=== PATIENT | female | born 1995 | race Caucasian/White ===

== ENCOUNTER 2017-09-25 10:13 | Emergency (ER) | payer BC ==
[~2017-09-25] VITALS: Ht 170.2 cm; Wt 70.3 kg
[~2017-09-25 10:13] MED LIST: AMOXICILLIN 50500 M1 PO; ATARAX; FLOMAX0.4 MG PO; IBUPROFEN 600600 M1 PO; IBUPROFEN 800800 MG PO; NAPROSYN500 MG PO; NOHOMEMEDICATIONS; NORCO 5-325 TA1 EACH PO; ULTRAM 50MG TAB50 MG PO; ZPAK PO
[2017-09-25 10:49] LABS: ABSOLUTE EOSINOPHILS 0.1 thou/uL (0.0-0.7); ABSOLUTE LYMPHOCYTES 1.5 thou/uL (0.8-5.3); ABSOLUTE MONOCYTES 0.3 thou/uL (0.0-1.2); ABSOLUTE NEUTROPHILS 2.3 thou/uL (1.6-8.1); BASOPHILS 0.4 %; EOSINOPHILS 1.6 %; HEMATOCRIT 38.4 % (37.0-47.0); HEMOGLOBIN 13.2 gm/dL (12.0-15.0); LYMPHOCYTES 36.1 %; MCH 30.4 pg (26.0-34.0); MCHC 34.4 g/dL (28.0-37.0); MCV 88.4 fL (80.0-100.0); MONOCYTES 7.4 %; MPV 7.9 fl. (7.2-11.1); NUCLEATED RBCS 0 /100WBC; PLATELET COUNT* 179 thou/uL (150-400); POLYS 54.5 %; RBC 4.35 mil/uL (4.20-5.00); RDW-CV 13.3 % (10.5-14.5); WBC 4.2 thou/uL (4.0-11.0)
[2017-09-25 10:54] LABS: ANION GAP 6 mmol/L (7-16); BUN 11 mg/dL (7-18); CHLORIDE 102 mmol/L (98-107); CO2 27 mmol/L (21-32); CREATININE 0.8 mg/dL (0.6-1.3); GLUCOSE 141 mg/dL (70-99); POTASSIUM 3.6 mmol/L (3.5-5.1); SODIUM 135 mmol/L (136-145)
[2017-09-25 11:01] LABS: ALBUMIN 3.9 g/dL (3.4-5.0); ALKALINE PHOSPHATASE 71 U/L (46-116); SGOT 14 U/L (15-37); SGPT < 6 U/L (30-65); TOTAL BILIRUBIN 0.4 mg/dL (<0.1-1.0); TOTAL PROTEIN 7.8 g/dL (6.4-8.2); TROPONIN-I LEVEL <0.06 ng/mL (<0.06)
[2017-09-25 11:13] LABS: AMP/METHAMP Negative (Negative); BARBITURATES Negative (Negative); BENZODIAZEPINES Negative (Negative); COCAINE Negative (Negative); METHADONE Negative (Negative); OPIATES Negative (Negative); PCP Negative (Negative); THC Negative (Negative)
[2017-09-25] MEDS ORDERED: ZANTAC 150MG T150 MG PO (12:15)
[2017-09-25 12:27] VITALS: BP 114/70
--- NOTE | 2017-09-25 16:21 | EKG ---
[place] [address] ELECTROCARDIOGRAM REPORT Name: JESSIE DURON Room: [facility]#: [id number] Admission: 09/25/17 Attend Phys: Discharge: 09/25/17 Date of : [birth year] Report #: [id number] THIS REPORT FOR: //name// [facility] ED Test Date: 2017-09-25 Test Time: 10:20:52 Pat Name: JESSIE DURON Department: Room: Gender: F Supervisor Spring Up: Pamela MAN : 1995 Requested By: Richard Ortiz Order Number: [id number] MD: Kirill Davis Measurements Intervals [place] Rate: 83 P: 66 FL: 114 QRS: 53 QRSD: 83 T: 9 QT: 349 QTc: 410 Interpretive Statements Sinus rhythm Borderline short [place] interval No previous ECG available for comparison Electronically Signed On 09-25-2017 16:20:58 PATIENT SUPPORT SPECIALIST by Kirill Davis [email or web address] <ELECTRONICALLY SIGNED> By: Kirill Davis MD, [facility] 09/25/17 1620 1020 1020 Kirill Davis MD, FACC /EPI
== END 2017-09-25 12:27 | disposition home or self-care (01) ==
LOC: M.ERS 10:13
PROVIDERS: Nurse Practitioner Psychiatric/Mental Health
DX: K21.9 Gastro-esophageal reflux disease without esophagitis (principal); R07.89 Other chest pain; F14.10 Cocaine abuse, uncomplicated; F17.210 Nicotine dependence, cigarettes, uncomplicated

== ENCOUNTER 2018-06-25 17:47 | Emergency (ER) | payer BC ==
[~2018-06-25] VITALS: Ht 172.7 cm; Wt 72.6 kg
[~2018-06-25 17:47] MED LIST changes: +ZANTAC 150MG T150 MG PO
[2018-06-25] MEDS ORDERED: IBUPROFEN 600600 M1 PO ×2 (19:15→19:39)
[2018-06-25] MEDS ORDERED: ROBAXIN 750 MG750 M1 PO ×2 (19:15→19:39)
[2018-06-25 19:44] VITALS: BP 122/78
== END 2018-06-25 19:45 | disposition home or self-care (01) ==
LOC: M.ERS 17:47
DX: S22.39XA Fracture of one rib, unspecified side, initial encounter for closed fracture (principal); M54.9 Dorsalgia, unspecified; K21.9 Gastro-esophageal reflux disease without esophagitis; F17.210 Nicotine dependence, cigarettes, uncomplicated; V43.52XA Car driver injured in collision with other type car in traffic accident, initial encounter; Y93.89 Activity, other specified; Y92.89 Other specified places as the place of occurrence of the external cause; Y99.8 Other external cause status

== ENCOUNTER 2018-06-27 09:35 | Emergency (ER) | payer BC ==
[~2018-06-27] VITALS: Ht 172.7 cm; Wt 72.6 kg
[~2018-06-27 09:35] MED LIST changes: +ROBAXIN 750 MG750 M1 PO
[2018-06-27] MEDS ORDERED: NABUMETONE 750750 M1 PO (11:19)
[2018-06-27 11:47] VITALS: BP 107/67
== END 2018-06-27 11:47 | disposition home or self-care (01) ==
LOC: M.ERS 09:35
DX: M72.2 Plantar fascial fibromatosis (principal); K21.9 Gastro-esophageal reflux disease without esophagitis; F17.210 Nicotine dependence, cigarettes, uncomplicated

== ENCOUNTER 2019-02-06 16:39 | Emergency (ER) | payer BC ==
[~2019-02-06] VITALS: Ht 172.7 cm; Wt 81.7 kg
[~2019-02-06 16:39] MED LIST changes: +NABUMETONE 750750 M1 PO
[2019-02-06 17:48] VITALS: BP 125/71
== END 2019-02-06 17:48 | disposition home or self-care (01) ==
LOC: M.ERS 16:39
DX: M79.672 Pain in left foot (principal); K21.9 Gastro-esophageal reflux disease without esophagitis; F17.210 Nicotine dependence, cigarettes, uncomplicated

== ENCOUNTER 2019-06-22 11:26 | Emergency (ER) | payer BC ==
[~2019-06-22] VITALS: Ht 172.7 cm; Wt 77.1 kg
[2019-06-22 11:51] LABS: URINE BILIRUBIN NEGATIVE (Negative); URINE BLOOD 3+ (Negative); URINE CLARITY CLEAR; URINE COLOR PALE YELLOW; URINE GLUCOSE-RANDOM NEGATIVE (Negative); URINE KETONES NEGATIVE (Negative); URINE LEUKOCYTES-REFLEX NEGATIVE (Negative); URINE NITRITE-REFLEX NEGATIVE (Negative); URINE PROTEIN NEGATIVE (Negative); URINE UROBILINOGEN 0.2 E.U./dl (0.2-1.0)
[2019-06-22 11:56] LABS: ABSOLUTE EOSINOPHILS 0.1 thou/uL (0.0-0.7); ABSOLUTE LYMPHOCYTES 1.6 thou/uL (0.8-5.3); ABSOLUTE MONOCYTES 0.5 thou/uL (0.0-1.2); ABSOLUTE NEUTROPHILS 5.5 thou/uL (1.6-8.1); BASOPHILS 0.1 %; EOSINOPHILS 1.2 %; HEMATOCRIT 34.8 % (37.0-47.0); HEMOGLOBIN 12.2 gm/dL (12.0-15.0); LYMPHOCYTES 20.3 %; MCH 29.8 pg (26.0-34.0); MCV 85.3 fL (80.0-100.0); MONOCYTES 6.1 %; MPV 7.5 fl. (7.2-11.1); NUCLEATED RBCS 0 /100WBC; PLATELET COUNT* 216 thou/uL (150-400); POLYS 72.3 %; RBC 4.08 mil/uL (4.20-5.00); RDW-CV 12.9 % (10.5-14.5); WBC 7.7 thou/uL (4.0-11.0)
[2019-06-22 12:01] LABS: CALCIUM 8.7 mg/dL (8.5-10.1); CREATININE 0.7 mg/dL (0.6-1.3); POTASSIUM 3.5 mmol/L (3.5-5.1)
[2019-06-22 12:06] LABS: ALBUMIN 3.9 g/dL (3.4-5.0); TOTAL BILIRUBIN 0.2 mg/dL (<0.1-1.0); TOTAL PROTEIN 7.7 g/dL (6.4-8.2)
[2019-06-22 12:28] LABS: BACTERIA-REFLEX 1-9 Few /HPF (None Seen); CASTS None Seen /LPF (None Seen); CRYSTALS None Seen /LPF (None Seen); SQUAMOUS 0-3 Few /LPF (0-3); URINE WBC-REFLEX 0-5 Rare /HPF (0-5)
[2019-06-22 12:29] LABS: URINE RBC 3-10 Few /HPF (0-2)
[2019-06-22] MEDS ORDERED: FLAGYL500 M1 PO (13:29)
[2019-06-22] MEDS ORDERED: BENTYL 20 MG TA20 M1 PO (13:29)
[2019-06-22] MEDS ORDERED: ONDANSETRON HCL4 M2 PO (13:29)
[2019-06-22 13:39] VITALS: BP 97/60
--- NOTE | 2019-06-22 15:16 | EKG ---
[place] [address] ELECTROCARDIOGRAM REPORT Name: JESSIE DURON Room: [facility]#: [id number] Admission: 06/22/19 Attend Phys: Discharge: 06/22/19 Date of : [birth year] Report #: [id number] THIS REPORT FOR: //name// [facility] ED Test Date: 2019-06-22 Test Time: 12:08:40 Pat Name: JESSIE DURON Department: Room: Gender: F Control Board Operator: MS : 1995 Requested By: Debbie Andrews Order Number: [id number] MD: Wes Wilson Measurements Intervals [place] Rate: 66 P: 60 AR: 104 QRS: 13 QRSD: 84 T: 29 QT: 408 QTc: 428 Interpretive Statements Sinus rhythm Short [place] interval Baseline wander in lead(s) V1,V2 Compared to ECG 09/25/2017 10:20:52 No significant changes Electronically Signed On 06-22-2019 15:16:42 MANAGER RESPIRATORY by Wes Wilson [email or web address] <ELECTRONICALLY SIGNED> By: Wes Wilson MD, [facility] 06/22/19 1516 120 07 Wes Wilson MD, FAC /EPI
== END 2019-06-22 13:39 | disposition home or self-care (01) ==
LOC: M.ERS 11:26
PROVIDERS: Nurse Practitioner Family
DX: R59.0 Localized enlarged lymph nodes (principal); R19.7 Diarrhea, unspecified; K21.9 Gastro-esophageal reflux disease without esophagitis; F17.210 Nicotine dependence, cigarettes, uncomplicated

== ENCOUNTER 2020-08-10 16:40 | Emergency (ER) | payer BC ==
[~2020-08-10] VITALS: Ht 172.7 cm; Wt 70.3 kg
[~2020-08-10 16:40] MED LIST changes: +BENTYL 20 MG TA20 M1 PO; +FLAGYL500 M1 PO; +ONDANSETRON HCL4 M2 PO
[2020-08-10 16:42] VITALS: BP 116/77
[2020-08-10 17:13] LABS: ABSOLUTE EOSINOPHILS 0.1 thou/uL (0.0-0.7); ABSOLUTE LYMPHOCYTES 2.2 thou/uL (0.8-5.3); ABSOLUTE MONOCYTES 0.6 thou/uL (0.0-1.2); ABSOLUTE NEUTROPHILS 4.8 thou/uL (1.6-8.1); BASOPHILS 0.5 %; EOSINOPHILS 1.4 %; HEMATOCRIT 39.7 % (37.0-47.0); HEMOGLOBIN 13.9 gm/dL (12.0-15.0); LYMPHOCYTES 28.3 %; MCH 30.5 pg (26.0-34.0); MCHC 34.9 g/dL (28.0-37.0); MCV 87.4 fL (80.0-100.0); MONOCYTES 7.2 %; MPV 7.5 fl. (7.2-11.1); NUCLEATED RBCS 0 /100WBC; PLATELET COUNT* 211 thou/uL (150-400); POLYS 62.6 %; RBC 4.54 mil/uL (4.20-5.00); RDW-CV 12.8 % (10.5-14.5); WBC 7.7 thou/uL (4.0-11.0)
[2020-08-10 17:23] LABS: CALCIUM 9.2 mg/dL (8.5-10.1); CREATININE 0.7 mg/dL (0.6-1.3); POTASSIUM 3.6 mmol/L (3.5-5.1)
[2020-08-10 17:27] LABS: ALBUMIN 4.3 g/dL (3.4-5.0); MAGNESIUM 2.1 mg/dL (1.8-2.4); TOTAL BILIRUBIN 0.4 mg/dL (<0.1-1.0); TOTAL PROTEIN 8.2 g/dL (6.4-8.2)
[2020-08-10] MEDS ORDERED: IBUPROFEN 800800 M1 PO (17:50)
--- NOTE | 2020-08-11 16:23 | EKG ---
[place] [address] ELECTROCARDIOGRAM REPORT Name: JESSIE DURON Room: [facility]#: [id number] Admission: 08/10/20 Attend Phys: Discharge: 08/10/20 Date of : [birth year] Date of Service: 08/10/20 1645 Report #: [id number] THIS REPORT FOR: //name// [facility] ED Test Date: 2020-08-10 Test Time: 16:45:04 Pat Name: JESSIE DURON Department: Room: Gender: F Surfacer Operator: : 1995 Requested By: Bib Booth Order Number: [id number] MD: Joshua Dodson Measurements Intervals [place] Rate: 82 P: 57 [place]: 107 QRS: 45 QRSD: 82 T: 4 QT: 347 QTc: 406 Interpretive Statements Sinus rhythm Short [place] interval Compared to ECG 06/22/2019 12:08:40 No significant changes Electronically Signed On 08-11-2020 16:23:21 TRIM LINE WORKER by Joshua Dodson [email or web address] <ELECTRONICALLY SIGNED> By: Joshua Dodson MD, [facility] 08/11/20 1623 1645 1645 Joshua Dodson MD, [facility] /EPI
== END 2020-08-10 18:14 | disposition home or self-care (01) ==
LOC: M.ERS 16:40
PROVIDERS: Emergency Medicine Emergency Medical Services
DX: R07.81 Pleurodynia (principal); F17.210 Nicotine dependence, cigarettes, uncomplicated; K21.9 Gastro-esophageal reflux disease without esophagitis

== ENCOUNTER 2020-09-22 13:57 | Emergency (ER) | payer BC ==
[~2020-09-22] VITALS: Ht 172.7 cm; Wt 72.6 kg
[~2020-09-22 13:57] MED LIST changes: +IBUPROFEN 800800 M1 PO
[2020-09-22] MEDS ORDERED: DOXYCYCLINE 10100 MG PO (14:54)
[2020-09-22] MEDS ORDERED: CENTANY30 GM TOP (14:54)
[2020-09-22 15:03] VITALS: BP 113/67
== END 2020-09-22 15:04 | disposition home or self-care (01) ==
LOC: M.ERS 13:57
DX: L03.116 Cellulitis of left lower limb (principal); F17.210 Nicotine dependence, cigarettes, uncomplicated; K21.9 Gastro-esophageal reflux disease without esophagitis

== ENCOUNTER 2021-02-09 10:17 | Emergency (ER) | payer OTHER, BC ==
[~2021-02-09] VITALS: Ht 170.2 cm; Wt 72.6 kg
[~2021-02-09 10:17] MED LIST changes: +CENTANY30 GM TOP; +DOXYCYCLINE 10100 MG PO
[2021-02-09 10:55] LABS: ABSOLUTE EOSINOPHILS 0.1 thou/uL (0.0-0.7); ABSOLUTE LYMPHOCYTES 1.6 thou/uL (0.8-5.3); ABSOLUTE MONOCYTES 0.5 thou/uL (0.0-1.2); ABSOLUTE NEUTROPHILS 4.3 thou/uL (1.6-8.1); BASOPHILS 0.3 %; EOSINOPHILS 1.7 %; HEMATOCRIT 36.2 % (37.0-47.0); HEMOGLOBIN 12.8 gm/dL (12.0-15.0); LYMPHOCYTES 24.7 %; MCH 32.1 pg (26.0-34.0); MCHC 35.4 g/dL (28.0-37.0); MCV 90.7 fL (80.0-100.0); MONOCYTES 8.2 %; MPV 7.3 fl. (7.2-11.1); NUCLEATED RBCS 0 /100WBC; PLATELET COUNT* 217 thou/uL (150-400); POLYS 65.1 %; RBC 3.99 mil/uL (4.20-5.00); RDW-CV 13.3 % (10.5-14.5); WBC 6.5 thou/uL (4.0-11.0)
[2021-02-09 11:10] LABS: CALCIUM 8.5 mg/dL (8.5-10.1); CREATININE 0.6 mg/dL (0.6-1.3); POTASSIUM 3.8 mmol/L (3.5-5.1)
[2021-02-09 11:14] LABS: ALBUMIN 3.9 g/dL (3.4-5.0); TOTAL BILIRUBIN 0.6 mg/dL (<0.1-1.0); TOTAL PROTEIN 7.7 g/dL (6.4-8.2)
[2021-02-09] MEDS ORDERED: FLEXERIL PO (12:29)
[2021-02-09] MEDS ORDERED: IBUPROFEN 800800 M1 PO (12:29)
[2021-02-09 12:38] VITALS: BP 110/66
--- NOTE | 2021-02-09 13:45 | EKG ---
[place] [address] ELECTROCARDIOGRAM REPORT Name: JESSIE DURON Room: [facility]#: [id number] Admission: 02/09/21 Attend Phys: Discharge: 02/09/21 Date of : [birth year] Date of Service: 02/09/21 1039 Report #: [id number] THIS REPORT FOR: //name// [facility] ED Test Date: 2021-02-09 Test Time: 10:39:27 Pat Name: JESSIE DURON Department: Room: Gender: F Director Agricultural Services: : 1995 Requested By: Bib Booth Order Number: [id number] MD: Wes Wilson Measurements Intervals [place] Rate: 82 P: 64 [place]: 117 QRS: 46 QRSD: 84 T: 27 QT: 379 QTc: 443 Interpretive Statements Sinus rhythm Borderline short [place] interval Compared to ECG 08/10/2020 16:45:04 No significant changes Electronically Signed On 02-09-2021 13:45:15 CDT by Wes Wilson [email or web address] <ELECTRONICALLY SIGNED> By: Wes Wilson MD, [facility] 02/09/21 1345 1039 1039 Wes Wilson MD, [facility] /EPI
== END 2021-02-09 12:38 | disposition home or self-care (01) ==
LOC: M.ERS 10:17
PROVIDERS: Emergency Medicine Emergency Medical Services
DX: S06.0X0A Concussion without loss of consciousness, initial encounter (principal); S39.012A Strain of muscle, fascia and tendon of lower back, initial encounter; F17.210 Nicotine dependence, cigarettes, uncomplicated; K21.9 Gastro-esophageal reflux disease without esophagitis; V49.88XA Car occupant (driver) (passenger) injured in other specified transport accidents, initial encounter; Y93.89 Activity, other specified; Y92.413 State road as the place of occurrence of the external cause; Y99.9 Unspecified external cause status

== ENCOUNTER 2021-08-27 13:51 | Emergency (ER) | payer BC ==
[~2021-08-27] VITALS: Ht 170.2 cm; Wt 77.1 kg
[~2021-08-27 13:51] MED LIST changes: +FLEXERIL PO
[2021-08-27 14:09] LABS: URINE BILIRUBIN NEGATIVE (Negative); URINE BLOOD NEGATIVE (Negative); URINE CLARITY CLEAR; URINE COLOR YELLOW; URINE GLUCOSE-RANDOM NEGATIVE (Negative); URINE KETONES NEGATIVE (Negative); URINE LEUKOCYTES NEGATIVE (Negative); URINE NITRITE NEGATIVE (Negative); URINE PROTEIN NEGATIVE (Negative); URINE SPECIFIC GRAVITY 1.015 (1.005-1.030); URINE UROBILINOGEN 0.2 E.U./dl (0.2-1.0)
[2021-08-27 15:56] LABS: ABSOLUTE LYMPHOCYTES 1.8 thou/uL (0.8-5.3); ABSOLUTE MONOCYTES 0.5 thou/uL (0.0-1.2); ABSOLUTE NEUTROPHILS 7.6 thou/uL (1.6-8.1); BASOPHILS 0.3 %; EOSINOPHILS 0.4 %; HEMATOCRIT 36.5 % (37.0-47.0); HEMOGLOBIN 12.9 gm/dL (12.0-15.0); LYMPHOCYTES 18.1 %; MCHC 35.4 g/dL (28.0-37.0); MCV 90.6 fL (80.0-100.0); MONOCYTES 4.9 %; MPV 7.4 fl. (7.2-11.1); NUCLEATED RBCS 0 /100WBC; PLATELET COUNT* 252 thou/uL (150-400); POLYS 76.3 %; RBC 4.03 mil/uL (4.20-5.00); RDW-CV 13.2 % (10.5-14.5)
[2021-08-27 16:26] LABS: CALCIUM 8.9 mg/dL (8.5-10.1); CREATININE 0.6 mg/dL (0.6-1.3); POTASSIUM 3.3 mmol/L (3.5-5.1)
[2021-08-27 16:30] LABS: ALBUMIN 4.1 g/dL (3.4-5.0); TOTAL BILIRUBIN 0.5 mg/dL (<0.1-1.0)
[2021-08-27 18:01] VITALS: BP 129/85
== END 2021-08-27 18:02 | disposition home or self-care (01) ==
LOC: M.ERS 13:51
PROVIDERS: Physician Assistant
DX: O26.891 Other specified pregnancy related conditions, first trimester (principal); R10.9 Unspecified abdominal pain; K21.9 Gastro-esophageal reflux disease without esophagitis; F17.210 Nicotine dependence, cigarettes, uncomplicated; Z3A.01 Less than 8 weeks gestation of pregnancy